=== PATIENT | female | born 1970 | race Caucasian/White ===

== ENCOUNTER 2023-05-22 22:54 | Emergency (ER) | payer MEDICAID, SELFPAY ==
--- NOTE | ~2023-05-22 | XR_ITS ---
EXAMINATION: XR CHEST CLINICAL INFORMATION: Dyspnea. Covid positive. COMPARISON: None available. TECHNIQUE: 2 views of the chest were obtained. FINDINGS: The lungs are hyperexpanded. There is no focal consolidation, edema, or effusion. No pneumothorax. The cardiomediastinal silhouette is within normal limits. No acute osseous abnormality. XR/XR chest 2V IMPRESSION: Hyperexpanded lungs. No focal consolidation.
[2023-05-22 22:58] VITALS: BP 109/66; PULSE 81; RESP 18; TEMP 36.2; O2SAT 96; BMI 22.9
[2023-05-23 00:44] VITALS: BP 106/68; PULSE 72; RESP 16; TEMP 36.9; O2SAT 98
--- NOTE | 2023-05-23 00:49 | ED.URI ---
HPI - URI/Sore Throat General Chief Complaint: Upper Respiratory Symptoms Stated Complaint: Flu like symptoms/+home covid test Time Seen by Provider: 05/23/23 00:13 Source: patient Mode of arrival: ambulatory Limitations: no limitations History of Present Illness HPI Narrative: 53-year-old female presents with shortness of breath and positive COVID test at home. Patient's symptoms started may be 3 days ago with some mild shortness of breath. Over the last 12 or so hours she has developed worsening shortness of breath, cough. She took a home COVID test which was positive. She denies any fevers, chills. Symptoms are moderate nature. There is no clear relieving or exacerbating features. However, she describes severe anxiety and stress at this time. She is getting ready to adopt 2 of her grandchildren. She reports having had panic attacks over the last couple months the point where she wakes up at 4 in the morning every night feeling like she needs to go outside to get fresh air. She denies any chest pain. She currently is a multiple sleep medications. Ceiling which she can get to sleep. She usually works until 1:00 a.m. in the morning. Related Data Previous Rx's Medication Instructions Recorded hydroxyzine HCl 25 mg tablet 25 mg PO TID PRN anxiety #10 tabs 05/23/23 nirmatrelvir 300 mg (150 mg See Rx Instructions PO .COMPLEX 05/23/23 x2)-ritonavir 100 mg tablet,dose #30 ea pack (Paxlovid) Allergies Allergy/AdvReac Type Severity Reaction Status Date / Time No Known Allergies Allergy Unverified 07/11/20 14:50 [No Known Allergies*] Review of Systems Review of Systems: CONSTITUTIONAL: Denies weight loss, fever and chills. HEENT: Denies changes in vision and hearing. RESPIRATORY: + SOB and cough. CV: Denies palpitations no CP. GI: Denies abdominal pain, nausea, vomiting and diarrhea. : Denies dysuria and urinary frequency. MSK: Denies myalgia and joint pain. SKIN: Denies rash and pruritus. NEUROLOGICAL: Denies headache and syncope. PSYCHIATRIC: Denies recent changes in mood. + anxiety and depression. All other ROS are negative unless in HPI Physical Exam Vital Signs: Vital Signs: Last Vital Signs Temp 98.5 F 05/23/23 00:44 Pulse 72 07/30/23 00:44 Resp 16 05/23/23 00:44 BP 106/68 05/23/23 00:44 Pulse Ox 98 05/23/23 00:44 O2 Del Method Room Air 05/23/23 00:44 BMI result Body Mass Index 22.9 GEN: Well developed, no acute distress, alert, oriented HEENT: Normocephalic, atraumatic, normal external ears, nose appears normal, no oropharyngeal edema or exudates Eyes: Normal to appearance Neck: Supple, no lymphadenopathy Respiratory: Talks in complete sentences, no respiratory distress, clear to auscultation bilaterally Cardiovascular: Regular rate and rhythm, no murmurs rubs or gallops Abdomen: Soft, nontender, nondistended, no guarding, no rebound Back: No CVA tenderness Extremities: No clubbing cyanosis or edema Neurologic: No focal neurologic deficits, cranial nerves 2-12 intact, strength is 5/5 bilaterally Skin: No rash Psych: Anxious Course Course Course Narrative: Patient will be discharged on Paxil that. I will also prescribe the for a chauhan hydroxyzine. Discussed the importance of following with her primary care provider and psychiatrist for medication adjustments. Medical Decision Making Medical Decision Making MDM Narrative: Patient presents for shortness of breath. Examination reveals normal oxygen saturation, no respiratory distress, talking in full sentences. Lungs were clear to auscultation bilaterally without wheezing rales or crackles. She tested positive for COVID at home. I see no reason for retesting here. I will start the patient on Paxil of it. She can take [id number] cough remedies. However, patient also is complaining of anxiety. She has a history of this with recent panic attacks. I will prescribe the patient hydroxyzine. She can continue her sleep medications. I have recommended close follow-up with her psychiatrist and primary care provider for medication adjustments. Differential Diagnosis Differential Diagnoses: The differential diagnosis associated with the presentation includes (Viral syndrome, COVID, upper respiratory infection, anxiety, stress, mood disorder) Independent Interpretation I performed an independent interpretation of an: Plain X-Ray (Chest: No acute cardiopulmonary disease) Radiology Impression Discussion of test interpretation with radiology: I have reviewed the radiologist's reading. (Hyperinflation) Prescription Management I considered prescription management with: Antiviral and Antibiotic Discharge Plan Discharge Clinical Impression: COVID-19, Anxiety Patient Disposition: Home, Self-Care Instructions: Viral Syndrome (ED), Anxiety (ED) Prescriptions: New Paxlovid 300 mg (150 mg x 2)-100 mg tablets,dose pack See Rx Instructions .ROUTE .COMPLEX Qty: 30 0RF Rx Instructions: take TWO 150 mg tablets of nirmatrelvir with ONE 100 mg tablet of ritonavir twice daily for 5 days hydroxyzine HCl 25 mg tablet 25 mg PO TID PRN (Reason: anxiety) Qty: 10 0RF Referrals: Physician,Unknown J [Primary Care Provider] - (PMD and/or psychiatrist within 1 week)
[2023-05-23 01:08] VITALS: O2SAT 98
[2023-05-23 01:11] LABS: COVID-19 Test Positive (Negative); IDNOW Serial# 6674DD1D
== END 2023-05-23 01:10 | disposition home or self-care (01) ==
PROVIDERS: Emergency Provider Emergency Medicine
DX: U07.1 COVID-19 (principal); R06.02 Shortness of breath; R05.9 Cough, unspecified; F41.1 Generalized anxiety disorder; F43.0 Acute stress reaction; Z79.899 Other long term (current) drug therapy
CPT/HCPCS: 71046; 87635; 99284